=== PATIENT | female | born 1950 | race Caucasian/White ===

== ENCOUNTER 2016-05-14 05:37 | Day surgery (SDC) | payer OTHER ==
--- NOTE | 2016-05-13 09:57 | PREOPHP ---
DATE OF ADMISSION: 05/14/2016 HISTORY OF PRESENT ILLNESS: This 65-year-old patient is admitted for elective cataract surgery of t he left eye. The patient has had a 1-year history of decreasing vision in both eyes without prior h istory of eye disease or injury. The patient has a 28 year history of insulin-dependent diabetes me llitus. CURRENT MEDICATIONS INCLUDE: 1. Insulin. 2. Metformin. 3. Synthroid. 4. Omeprazole. 5. Methotrexate. ALLERGIES: THE PATIENT IS ALLERGIC TO ASPIRIN. PHYSICAL EXAMINATION: The visual acuity with best correction is 20/50 in the right eye and 20/60 in the left eye. Slit lamp examination reveals advanced anterior cortical lens opacities with moderat e nuclear sclerosis present in both eyes and changes present on the posterior surface of the lens in both eyes. Applanation tonometry is 15 mmHg. Examination of the retina reveals the presenc e of mild nonproliferative diabetic retinopathy in both eyes. DIAGNOSIS: Cataract, left eye. PLAN: Cataract extraction with lens implant, left eye. The risks and alternatives to the surgery h ave been discussed with the patient as well as the hope for improvement of visual acuity leading to a greater ability to perform activities of daily living. The patient understands this and agrees to proceed with surgery. Dictated By: KIMI PHILIP/TONA Conf#: [id number] DID#: [id number]
[2016-05-13 10:47] VITALS: BMI 33.4
[2016-05-14] VITALS (10 sets, daily range): BP systolic 126–159; BP diastolic 50–70; PULSE 0–76; RESP 15–24; Ht 160 cm; Wt 91.0 kg
[~2016-05-14] VITALS: Ht 160 cm; Wt 91.0 kg
[~2016-05-14 05:37] MED LIST: BENA20TA48; CHLO15TA; DICLOFENAC PO; DOXA1TAB38 PO; GABAPENTIN PO; INSU100C5 SQ; INSU100I14 SQ; LORA10TA3 PO; PRAV10TA43 PO
[2016-05-14] MEDS ORDERED: CYCLOPENTOLATE/PHENYLEPH 2 ML OPH OPER SCH (06:30)
[2016-05-14] MEDS ORDERED: CIPROFLOXACIN 0.3% 2.5 ML OPH OPER SCH (06:30)
[2016-05-14] MEDS ORDERED: TROPICAMIDE 1% 2 ML OPH OPER SCH (06:30)
[2016-05-14] MEDS ORDERED: DICLOFENAC 0.1% 2.5 ML OPH ONE (07:39)
[2016-05-14] MEDS ORDERED: ALPR0.5T6 PO (07:59)
[2016-05-14] MEDS ORDERED: OMEP40CA6 PO (08:00)
[2016-05-14] MEDS ORDERED: VIT1TABL46 PO (08:00)
[2016-05-14] MEDS ORDERED: DICLOFENAC 0.1% 2.5 ML OPH OPER SCH (08:00)
[2016-05-14] MEDS ORDERED: AMLO5TAB4 PO (08:01)
[2016-05-14] MEDS ORDERED: METF500T4 PO (08:03)
[2016-05-14] MEDS ORDERED: DEXAMETHASONE 4 MG/ML 1 ML INJ INJ ONE (08:20)
[2016-05-14] MEDS ORDERED: CARBACHOL 0.01% 1.5 ML OPH INJ LEFT EYE ONE (08:20)
[2016-05-14] MEDS ORDERED: CEFAZOLIN 1 GM INJ INJ ONE (08:20)
[2016-05-14] MEDS ORDERED: HYALURONATE/CHONDROITIN 1ML OPH INJ IO ONE (08:20)
[2016-05-14] MEDS ORDERED: HYALURONATE/CHONDROITIN 1ML OPH INJ ONE (08:22)
[2016-05-14] MEDS ORDERED: CEFAZOLIN 1 GM INJ ONE (08:22)
[2016-05-14] MEDS ORDERED: CARBACHOL 0.01% 1.5 ML OPH INJ ONE (08:22)
[2016-05-14] MEDS ORDERED: GENTAMICIN 80 MG INJ ONE (08:22)
[2016-05-14] MEDS ORDERED: LIDOCAINE 4% (MPF) 5 ML INJ ONE (08:22)
[2016-05-14] MEDS ORDERED: DEXAMETHASONE 4 MG/ML 1 ML INJ ONE (08:22)
[2016-05-14] MEDS ORDERED: EPINEPHrine 1 MG INJ ONE (08:23)
[2016-05-14] MEDS ORDERED: LIDOCAINE 2% (SDV) 5 ML INJ ONE (08:30)
[2016-05-14] MEDS ORDERED: PROPOFOL 20 ML ONE (08:30)
[2016-05-14] MEDS ORDERED: FENTAnyl 50 MCG/ML VIAL ONE (08:31)
[2016-05-14] MEDS ORDERED: MIDAZOLAM 1 MG/ML 2 ML INJ ONE (08:31)
[2016-05-14] MEDS ORDERED: HYDROmorphONE (0.2 MG/ML) 10ML SYG IV PRN (09:00)
[2016-05-14] MEDS ORDERED: PROCHLORPERAZINE 10 MG INJ IV PRN (09:00)
[2016-05-14] MEDS ORDERED: FENTAnyl 50 MCG/ML VIAL IV PRN (09:00)
[2016-05-14] MEDS ORDERED: DIPHENHYDRAMINE 50 MG INJ IV PRN (09:00)
[2016-05-14] MEDS ORDERED: OXYCODONE/ACETAMINOPHEN (5/325) TAB PO PRN (09:00)
[2016-05-14] MEDS ORDERED: ONDANSETRON 4 MG INJ IV PRN (09:00)
[2016-05-14] MEDS ORDERED: hydrALAzine 20 MG INJ ONE (09:06)
--- NOTE | 2016-05-14 09:58 | OPR ---
DATE OF OPERATION: 05/14/2016 PREOPERATIVE DIAGNOSIS: Cataract, left eye. POSTOPERATIVE DIAGNOSIS: Cataract, left eye. SURGEON: Kimi Taylor MD CONSTRUCTION SUPERVISOR: ANESTHESIA: Local standby. ANESTHESIOLOGIST: Malka Steel OPERATION: Cataract extraction with lens implant, left eye. PROCEDURE: The patient was brought to the operating room and placed on the table with an IV in place and the patient attached to an hospital monitor. Oxygen was given via face mask. After some intravenous sedation was administered, local anesthesia was given using Xylocaine 2% with epinephrine, mixed with Marcaine 0.5%. This was given in a lid block and retrobulbar injection. The patient was then prepped and draped in the usual sterile manner. A lid speculum was inserted between the lids of the left eye. A SuperBlade was used to enter the anterior chamber through clear cornea adjacent to the corneoscleral limbus at the 10:30 and 1:30 clock positions. A separate incision was made using a 3.0-mm keratome which entered the cornea in a stepped incision adjacent to the corneoscleral junction at the 12 o'clock position. Through this 3-mm opening, an irrigating cystotome was introduced into the anterior chamber. The chamber was filled with Discovisc and an anterior capsulotomy was performed. Balanced salt solution was then used for hydrodissection of the lens. A phacoemulsification handpiece was then brought into the field and introduced into the anterior chamber. The lens nucleus was emulsified using a deep groove and cracking the nucleus into quadrants. Following this, each quadrant was aspirated and emulsified at the pupillary margin. After this was completed, the irrigation/aspiration handpiece was brought to the field, introduced into the posterior chamber, and the lens cortical material was removed. When this was completed, additional Viscoat was injected into the anterior and posterior chambers. The 3-mm opening had its internal lips enlarged, and then the posterior chamber intraocular lens measuring 17.5 diopters (Bausch and Lomb [employer] [id number]) was then injected into the posterior chamber using the lens injector system. After the leading haptic was introduced into the capsular bag and the lens optic was present in the center of the eye, the injector was removed and the trailing haptic was grasped with non-toothed forceps and introduced into the capsular fold superiorly. At this point there appeared to be a break in the posterior capsule, but the lens implant remained stable. A Sinskey hook was then used to rotate the intraocular lens so that the haptics were oriented in the horizontal meridian. One 10-0 nylon suture was placed across the wound. Prior to tying, the irrigation/aspiration handpiece was reintroduced into the anterior chamber to remove the Discovisc. Miochol was instilled to constrict the pupil, and then the 10-0 nylon suture was tied. The ends were cut short and then the knot was buried. Then, 0.5 mL of dexamethasone and 0.5 mL of Ancef were injected into the sub- [place]on space in the inferior fornix. Vigamox drops were then placed on the surface of the eye. The speculum was removed and a patch was applied. The patient then left the operating room in satisfactory condition. Dictated By: KIMI PHILIP/TONA Conf#: [id number] DID#: [id number] PRADEEP
--- NOTE | 2016-05-14 16:59 | RADRPT ---
Vent Rate: 67 bpm RR Interval: 0 msec AL Interval: 168 msec QRS Duration: 94 msec QT Interval: 448 msec QTC Interval: 473 msec P-R-T [place]: 66 - 41 - 53 degrees Normal sinus rhythm Possible Left atrial enlargement Borderline ECG Electronically Signed By: Lawrence Rao [id number]
== END 2016-05-14 10:20 | disposition home or self-care (01) ==
LOC: SDS 05:37 → GIL 05:37 → SDS 10:20
PROVIDERS: ATTEND Ophthalmology
DX: H25.11 Age-related nuclear cataract, right eye (principal); E11.9 Type 2 diabetes mellitus without complications; Z79.4 Long term (current) use of insulin; E03.9 Hypothyroidism, unspecified; E66.9 Obesity, unspecified; Z68.35 Body mass index [BMI] 35.0-35.9, adult; I10 Essential (primary) hypertension
CPT/HCPCS: 66984; 82962; 93005; J0171; J0360; J0690; J1100; J1580; J2250; J3010; V2632; Z7512; Z7610